=== PATIENT | male | born 1955 | race Caucasian/White ===

== ENCOUNTER 2019-12-23 21:48 | Emergency (ER) | payer OTHER, SELFPAY ==
[2019-12-23 21:54] VITALS: BP 117/84; PULSE 98; RESP 18; TEMP 36.2; O2SAT 99
--- NOTE | 2019-12-23 22:10 | ED.GENADULT ---
HPI - General Adult General Chief complaint: Urogenital-Male Stated complaint: I need a catheter; prostate issue Time Seen by Provider: 12/23/19 22:00 Source: RN notes reviewed History of Present Illness HPI narrative: Patient presents emergency department from home for urinary retention. Patient states he is less able to urinate at approximately 1530 today. States he has a history of enlarged prostate and is followed by Dr. Marion at [facility] for urology. States that he last had a have a Wilder placed in 2018. He denies any fevers or chills chest pain or shortness of breath. Does note lower abdominal pain that feels like a pressure. He states he did have dental work earlier today and had injections of anesthesia Related Data Allergies Allergy/AdvReac Type Severity Reaction Status Date / Time erythromycin base Allergy Mild Unknown Verified 12/23/19 22:04 Sulfa (Sulfonamide Allergy Mild Unknown Verified 12/23/19 22:04 Antibiotics) Review of Systems Review of Systems: Narrative: Gen.: Denies fevers or chills Respiratory: Denies shortness of breath or cough CV: Denies chest pain or palpitations GI: Reports lower abdominal pain nausea, emesis or diarrhea see HPI Musculoskeletal: Denies back pain or muscle pain Neuro: Denies numbness, tingling, weakness or focal weakness Skin: Denies rash Except as documented, all other systems reviewed and negative [facility] Past Medical History Medical History (Updated 12/23/19 @ 22:23 by Tee Sinclair DO) BPH (benign prostatic hyperplasia) Social History Social History (Updated 12/23/19 @ 22:11 by Tee Sinclari DO) Smoking status: Never smoker Gender identity (if verbalized by the patient): Male Exam Narrative: Exam Narrative: APPEARANCE: No acute distress, nontoxic, resting in bed EYES: EOMI HEENT: Normocephalic, atraumatic, OMM RESPIRATORY: No respiratory distress Clear to auscultation bilaterally with no rhonchi wheezing or rales. CARDIOVASCULAR: Regular rate and rhythm without murmurs rubs or gallops. ABDOMINAL: Soft, lower abdominal distention with tenderness palpation suprapubic region, no rebound or guarding MUSCULOSKELETAl: Moves all extremities. NEURO: Awake and alert. Following commands, speech normal, no focal deficits SKIN:: Warm, dry. No rashes lesions or abrasions PSYCHIATRIC: Normal affect/mood, Course Course Emergency Course: Wilder catheter placed by nursing staff with approximately 800 mL of urine out Discussed with patient results of workup and diagnosis. Discussed need for follow-up with primary care, proper use of medication, and reasons to return to the emergency department. Patient understands and agrees to current treatment plan patient will follow-up with his urologist at [facility] Vital Signs Vital signs: Vital Signs Temperature 97.1 F L 12/23/19 21:54 Pulse Rate 98 12/23/19 21:54 Respiratory Rate 18 12/23/19 21:54 Blood Pressure 117/84 12/23/19 21:54 Pulse Oximetry 99 12/23/19 21:54 Temperature 97.1 F L 12/23/19 21:54 Pulse Rate 98 12/23/19 21:54 Respiratory Rate 18 12/23/19 21:54 Blood Pressure 117/84 12/23/19 21:54 Pulse Oximetry 99 12/23/19 21:54 Medical Decision Making Vital Signs Vital Signs: Vital Signs Temperature 97.1 F L 12/23/19 21:54 Pulse Rate 98 12/23/19 21:54 Respiratory Rate 18 12/23/19 21:54 Blood Pressure 117/84 12/23/19 21:54 Pulse Oximetry 99 12/23/19 21:54 Temperature 97.1 F L 12/23/19 21:54 Pulse Rate 98 12/23/19 21:54 Respiratory Rate 18 12/23/19 21:54 Blood Pressure 117/84 12/23/19 21:54 Pulse Oximetry 99 12/23/19 21:54 Lab Data Labs: Lab Results 12/23/19 Range/Units 22:07 Urine Color Yellow (Yellow) Urine Appearance Clear (Clear) Urine pH 6.0 (5.0-9.0) Ur Specific [place] 1.014 (1.001-1.035) Urine Protein Negative (Negative) mg/dL Urine Glucose (UA) Ne
[2019-12-23 22:16] LABS: Add Urine Microscopic? YES; Appearance Urine Clear (Clear); Bilirubin Urine Negative (Negative); Blood Urine Negative (Negative); Color Urine Yellow (Yellow); Glucose Urine UA Negative (Negative); Ketones Urine Negative (Negative); Leukocyte Esterase Ur Negative LEU/UL (Negative); Mucus Urine Rare /lpf; Nitrate Urine Negative (Negative); Protein Urine Negative (Negative); RBC Urine 0-2 /hpf (0-2); Specific Grav Ur 1.014 (1.001-1.035); Urobilinogen Urine Negative mg/dL (<2.0); WBC Urine 0-3 /hpf
[2019-12-23 22:35] VITALS: BP 118/80; PULSE 81; RESP 16; O2SAT 99
[2019-12-23] MEDS: TAMSULOSIN HCL 0.4 MG CAPSULE PO (22:36)
== END 2019-12-23 22:40 | disposition home or self-care (01) ==
PROVIDERS: Emergency Provider Emergency Medicine
DX: R33.8 Other retention of urine (principal)
CPT/HCPCS: 51702; 81001; 99283; A9270

== ENCOUNTER 2021-10-09 18:20 | Emergency (ER) | payer MEDICARE, OTHER, SELFPAY ==
--- NOTE | ~2021-10-09 | XR_ITS ---
XR finger 2nd LT min 2V 10/09/2021 18:53 Indication: Left second finger pain after trauma Procedure: 4 views left second finger Comparison: No prior studies for comparison. Findings: There is a nondisplaced tuft fracture of the left second distal phalanx. No significant sof t tissue abnormality. No foreign bodies. Impression: 1: Nondisplaced tuft fracture left second distal phalanx. Reviewed, dictated and finalized at location A. Impression: 1: Nondisplaced tuft fracture left second distal phalanx.
[2021-10-09 18:33] VITALS: BP 147/91; PULSE 81; RESP 18; TEMP 36.8; O2SAT 99
--- NOTE | 2021-10-09 18:54 | ED.UPPEXIN ---
HPI - Extremity Injury (Upper) General Chief Complaint: Extremity Injury, Upper Stated Complaint: Lt Hand Pain Time Seen by Provider: 10/09/21 18:50 Source: patient, RN notes reviewed and old records reviewed Mode of arrival: ambulatory Limitations: no limitations History of Present Illness HPI narrative: 66 year old male presents to [facility] with complaints of hitting his proximal left index finger with a hammer around noon today. Swelling and ecchymosis noted to his left proximal index finger. 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 No injury noted to the base of the nail or discoloration or the nail. Patient reports that his tetanus shot is up to date from 2 weeks ago. MD complaint: injury to: left and finger (index finger) Related Data Allergies Allergy/AdvReac Type Severity Reaction Status Date / Time erythromycin base Allergy Mild Hives Verified 10/09/21 18:43 Sulfa (Sulfonamide Allergy Mild Unknown Verified 10/09/21 18:43 Antibiotics) Review of Systems Review of Systems: CONSTITUTIONAL: Denies fever, chills, or sweats. EYES: Denies visual changes, redness, or discharge. ENT: Denies rhinorrhea, congestion, sore throat, or otalgia. CARDIOVASCULAR: Denies chest pain, palpitations, or edema. RESPIRATORY: Denies cough or dyspnea. GASTROINTESTINAL: Denies abdominal pain, nausea, vomiting, or diarrhea. GENITOURINARY: Denies dysuria or hematuria. SKIN: Denies rash or itching. MUSCULOSKELETAL: Denies back pain,Positive for pain to 2nd digit left hand proximal and distal aspects. or myalgia. NEUROLOGIC: Denies headache, numbness, or weakness. PSYCHIATRIC: Denies anxiety or depression. All systems reviewed & are unremarkable except as noted in HPI and below PMFSH Past Medical History Medical History (Updated 10/10/21 @ 07:24 by Vivian Vargas NP) BPH (benign prostatic hyperplasia) Hiatal hernia Social History Social History Smoking status: Never smoker Gender identity (if verbalized by the patient): Male Comments At time of signature, agree with nursing past medical, surgical, social and family history. There is no relevant family history pertinent to the presenting complaint Exam Narrative: GENERAL: Well-appearing, well-nourished, and in no acute distress. HEAD: Normocephalic, atraumatic EYES: PERRLA and EOMI. ENT: Nares clear, no rhinorrhea or epistaxis. Mucous membranes moist.TM's normal with good light reflex, throat pink with no lesions or tonsil swelling NECK: Supple. no lymphadenopathy CHEST: Clear to auscultation. No respiratory distress.SAO2 99% on room air HEART: Regular rate and rhythm. No murmur heard. Normal peripheral pulses. ABDOMEN: Soft, nontender, nondistended, normal Exception noted to swelling and bruising to the proximal aspect of 2nd left digit and also pain to distal tip of left index finger with some bleeding noted around side and under nail with no injury noted to base of nail. Some ecchymosis noted to the tip of his left index finger. Patient has mobility of his left index finger with sensation and circulation intact. SKIN: Warm, dry, no rash NEURO: No focal deficits. Alert and oriented x3. Course Course Level of Care: Express Care Visit Vital Signs Vital signs: Vital Signs Temperature 36.8 C 10/09/21 18:33 Pulse Rate 81 10/09/21 18:33 Respiratory Rate 18 10/09/21 18:33 Blood Pressure 147/91 H 10/09/21 18:33 Pulse Oximetry 99 10/09/21 18:33 Oxygen Delivery Room Air 10/09/21 18:33 Temperature 36.8 C 10/09/21 18:33 Pulse Rate 81 10/09/21 18:33 Respiratory Rate 18 10/09/21 18:33 Blood Pressure 147/91 H 10/09/21 18:33 Pulse Oximetry 99 10/09/21 18:33 Oxygen Delivery Room Air 10/09/21 18:33 MDM - Extremity Injury (Upper)
== END 2021-10-09 19:31 | disposition home or self-care (01) ==
PROVIDERS: Emergency Provider Registered Nurse
DX: S62.661A Nondisplaced fracture of distal phalanx of left index finger, initial encounter for closed fracture (principal); S60.022A Contusion of left index finger without damage to nail, initial encounter; W29.8XXA Contact with other powered hand tools and household machinery, initial encounter; N40.0 Benign prostatic hyperplasia without lower urinary tract symptoms
CPT/HCPCS: 29130; 73140; 99214; G0463

== ENCOUNTER 2024-12-04 14:01 | Emergency (ER) | payer MEDICARE, OTHER, SELFPAY ==
--- OUTSIDE RECORDS SUMMARY | 2007-05-29 04:50 | XMS_ITS | Continuity of Care Document ---
Author Organization [facility] Address [address] [place] [address] Phone Care Team Providers Care Coordinating Producer Name Role Phone Katyh Costa Unavailable Unavailable Procedures Procedure Date Remove Foreign Body From Eye Remove Foreign Body From Eye Advance Directives Directive Yes / No Effective Date File Name No Information Encounters Encounter Description Practice Location Reason(s) For Visit Diagnoses Date Provider Providers Copied on Encounter [facility], [address], [place], [place], [id number], tel:[phone] [facility] No Information 8 Julissa Chavez. [address] , [address], [place], [address], . tel:[phone] Referring Provider: Kathy Wolff, [facility] [address], [place], [place], [facility]. tel:[phone] [facility], [address], [place], [place], [id number], [place] tel:[phone] [facility] No Information 8 Julissa Chavez. [address] [facility] , [address], [place], [address], [place]. tel:[phone] Family History Family Member Type Diagnosis Age At Onset No Information Payers Payer name Insurance type Covered green party ID Authoriza tion(s) No Information Social History Type Description Quantity Date Captured Comments Sex Male Smoking Status No Information Chief Complaint And Reason For Visit No Information Reason For Referral Reason For Referral No Information History Of Present Illness Encounter Date Complaint History Of Prese nt Illness No Information Functional Status Date Functional Assessmen t No Information Instructions Date Instruction Additional Infor mation No Information Assessments Type Assessment Date No Information Patient Care Teams Name Effective Dates (start - stop) Status Members No Information
--- OUTSIDE RECORDS SUMMARY | 2007-05-29 04:50 | XMS_ITS | Continuity of Care Document ---
Author Organization [facility] Address [address] [place] [address] Phone Care Team Providers Care Validation Consultant Name Role Phone Kathy Costa Unavailable Unavailable Procedures Procedure Date Remove Foreign Body From Eye Remove Foreign Body From Eye Advance Directives Directive Yes / No Effective Date File Name No Information Encounters Encounter Description Practice Location Reason(s) For Visit Diagnoses Date Provider Providers Copied on Encounter [facility], [address], [place], [place], [id number], tel:[phone] [facility] No Information 8 Julissa Chavez. [address] [address] , [address], [place], [address], . tel:[phone] Referring Provider: Kathy Wolff, [facility] [address], [place], [place], [facility]. tel:[phone] [facility], [address], [place], [place], [id number], [place] tel:[phone] [facility] No Information 8 Julissa Chavez. [address] [facility] [address] , [address], [place], [address], [place]. tel:[phone] Family History Family Member Type Diagnosis Age [...]
--- NOTE | 2024-12-04 14:04 | ED_ITS ---
HPI - Extremity Injury (Lower) General Chief Complaint: Skin/Abscess/Foreign Body Stated Complaint: Rt Foot Pain Time Seen by Provider: 12/04/24 14:04 Source: patient Mode of arrival: ambulatory Limitations: no limitations History of Present Illness HPI Narrative: David is a 61-year-old male patient presenting to the clinic today with complaints of a puncture wound to his right midfoot that occurred approximately 5 days ago. He reports he stepped on a big foreign that went through his shoe into his foot. Has a small puncture wound to the midfoot without redness or swelling. Patient reports the area is mildly tender. Is concerned about tetanus and would like a tdap injection today Related Data Home Medications ?Medication ?Instructions ?Recorded ?Confirmed ?Last Taken ?Type fluorometholone 0.1 % eye drp 12/04/24 Unknown Histor y drops,suspension Allergies Allergy/AdvReac Type Severity Reaction Status Date / Time erythromycin base Allergy Mild Hives Verified 12/04/24 14:08 Sulfa (Sulfonamide Allergy Mild Hives Verified 12/04/24 14:08 Antibiotics) Review of Systems Review of Systems: Pertinent positives per HPI. Patient denies any fever, chills, rash, headache, visual changes, dizziness, cough, runny nose, sore throat, shortness of breath, chest pain, palpitations, nausea, vomiting, diarrhea, constipation, abdominal pain, or any urinary issues. [facility] Past Medical History Medical History Right wrist tendinitis UTI (urinary tract infection), bacterial Hiatal hernia BPH (benign prostatic hyperplasia) Surgical History Surgical History S/P tendon repair bicep repair [address] Matson. 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 There is no relevant family history pertinent to the patient complaint. Exam Narrative: General: Well-developed, well nourished, in no apparent distress Head: Normocephalic, atraumatic. Cardio: Regular rate and rhythm, s1 and s2 normal, no murmur appreciated. Resp: Clear to auscultation bilaterally, no rhonchi, rales, wheezing or rubs. Integumentary: [place], warm, and dry, small puncture wound to the right midfoot with mild tenderness to palpation without induration or palpable abscess, no obvious retained foreign body Course Course Emergency Course: Portions of this record may have been created with voice recognition software. Level of Care: Express Care Visit Vital Signs Vital signs: Vital Signs Temperature 36.4 C 12/04/24 14:14 Pulse Rate 96 12/04/24 14:14 Respiratory Rate 18 12/04/24 14:14 Blood Pressure 134/81 12/04/24 14:14 Pulse Oximetry 100 12/04/24 14:14 Oxygen Delivery Room Air 12/04/24 14:14 Temperature 36.4 C 12/04/24 14:14 Pulse Rate 96 12/04/24 14:14 Respiratory Rate 18 12/04/24 14:14 Blood Pressure 134/81 12/04/24 14:14 Pulse Oximetry 100 12/04/24 14:14 Oxygen Delivery Room Air 12/04/24 14:14 Vital signs reviewed MDM - Extremity Injury (Lower) MDM Narrative Medical decision making narrative: At the time of visit patient is resting comfortably on the exam table. Patient appears to be nontoxic. Complaints of a puncture wound to his right midfoot that occurred approximately 5 days ago. He reports he stepped on a big foreign that went through his shoe into his foot. Has a small puncture wound to the midfoot without redness or swelling. Patient reports the area is mildly tender. Is concerned about tetanus and would like a tdap injection today. On exam patient has small puncture wound to the right midfoot with mild tenderness to palpation without induration or palpable abscess, no obvious retained foreign body. Tdap was ordered. Medications: Tdap 0.5 mL IM given in the clinic Plan: Patient has puncture wound to the right foot. Tetanus shot updated in the clinic. Supportive measures were discussed with the patient and they voiced understanding discharge instructions and agrees to treatment plan. Return precautions reviewed Differential Diagnosis Differential diagnosis: Likely puncture wound of foot and other (Skin infection, cellulitis, retained foreign body) Discharge Plan Discharge Clinical Impression: Encounter for immunization Puncture wound of foot Qualifiers: Encounter type: initial encounter Laterality: right Qualified Code(s): S91.331A - Puncture wound without foreign body, right foot, initial encounter Patient Disposition: Home Condition: Stable Instructions: Antibiotic Form, Puncture Wound in the Foot (ED) Additional Instructions: Tdap 0.5 mL IM given in the clinic today Keep wound clean and dry May take Tylenol/Motrin as needed for pain Watch for signs and symptoms of infection- redness, streaking, swelling, purulent discharge, or increase in pain. Follow up with your PCP in 2-3 days as needed Patient Language: [place] Prescriptions: No Action fluorometholone 0.1 % drops,suspension Follow-up/Referrals: UNKNOWN,DOCTOR [Non-Staff] Time of Disposition: 14:20 Quality NIHSS Nursing Documentation ED NIHSS nursing documentation: reviewed/agree
--- OUTSIDE RECORDS SUMMARY | 2024-12-04 14:05 | XMS_ITS | Clinical Summary ---
Author Organization [facility] [employer] Address [address] [place] [address] Care Team Providers Care Logistics Vice President Name Role Phone Tigre Astorga DO Primary Care Provider [phone] Regina Magaña DO Unavailable [phone] Source Comments [facility] [employer],non-owned Affiliates and Associated Physician Practices is amultiple site organization consisting of ambulatory clinics and hospital sitesin [place], [place], [place] and [place]. This disclosure is being madepursuant to the Care Everywhere program and may not contain all information available regarding this patient. Last updated 18.[facility] [employer] Allergies Active Allergy Reactions Criticality Noted Date Comments Erythromycin Urticaria Medium 12/01/2015 Sulfa Drugs Itching High 01/01/2018 Medications * Be aware that medications may not be up to date on this document. Alwaysverify current medications with the patient. [place]-3 Fatty Acids (FISH OIL) 1000 MG capsule Take 2 (two) capsules by mouth Active B Complex Vitamins (B COMPLEX 50 PO) Activ e Green Tea, Joanna sinensis, (GREEN TEA EXTRACT PO) Active DIGESTIVE ENZYMES PO Active Specialty Vitamins Products (PROSTATE PO) Active Turmeric (QC TUMERIC COMPLEX PO) Active Gatito, Zingiber officinalis, (GATITO ROOT PO) Active vitamin E (Tocopheryl) 100 UNIT capsule Take by mouth once daily Active niacinamide 500 MG tablet Take 4 (four) tablets by mouth once daily Active calcium carbonate (Tums) 500 MG chew tablet Take 1 (one) tablet by mouth daily with food Active dexAMETHasone (Decadron) 1 MG tabletIndicatio ns:Adenoma of left adrenal gland Take 1 (one) tablet by mouth once daily 1 tablet 01/05/2024 Active acetylcysteine (N-Acetyl Cysteine) 600 MG capsule Take 1 (one) capsule by mouth 2 times daily Active Ginseng 100 MG Take 100 mg by mouth once daily Active Active Problems Problem Noted Date Diagnosed Date Adrenal nodule 01/26/2024 Dyslipidemia 01/26/2024 Assessment & Plan (01/26/2024 2:18 PM CDT): - ASCVD risk 21.5% Plan: - after discussing risk and benefits, pt declined statin or other pharmacotherapy - repeat lipid panel in 6 mo HTN (hypertension) 01/26/2024 Assessment & Plan (01/26/2024 2:21 PM CDT): - per chart review, pt's has been having elevated pressures for past several years. Pt states it has been improving w/ supplements - unclear if essential vs secondary htn 2/2 to functioning adrenal adenoma Plan: - after discussing risks and benefits, pt declined pharmacotherapy at this time - pt agreed to OnetoOnetext BP log - ctm Routine health maintenance 01/26/2024 Assessment & Plan (01/26/2024 2:33 PM CDT): - pt declined any vaccines at this time - pt is due for colonoscopy between and 2025, and an EGD by 2025 Plan: - plan for scheduling w/ GI at next f/u Elevated urinary free cortisol level 01/26/2024 Assessment & Plan (01/26/2024 2:31 PM CDT): - is following w/ endo. Plan is to repeat labs after patient had been taking new set of supplements for several months. Pt is planning on completing his 2nd dexamethasone test tonight/tmr AM. Plan: - f/u endo's recommendations and test results Elevated PSA 01/17/2021 Tubular adenoma of colon 01/17/2021 Benign localized hyperplasia of prostate with urinary obstruction 12/01/2015 Assessment & Plan (01/26/2024 2:19 PM CDT): - following urology Plan: - ctm GERD (gastroesophageal reflux disease) Resolved Problems Problem Noted Date Diagnosed Date Resolved Date Preventative health care 01/17/2021 Palpitations 01/17/2021 01/26/2024 Assessment & Plan (02/12/2021 5:13 PM CDT): The appear temporarily related to taking the Setswana tea, epilobium (as a prostate supplement) and has resolved . Given the unknown acctive ingredients in this product their could haave been a caffein-like stimulate that created his palpitations. As they have resolved with stopping the supplement no further workup is indicated. patient reassured and encouraged to avoid taking supplements for his medical problems Encounters Date Type Department Care Team Description 09/10/2024 11:02 AM CDT - 09/10/2024 12:24 PM CDT Emergency [facility] [address] [place] [id number] Fall, initial encounter; Sciatica of left side; Acute pain of left knee Discharge Disposition: Left Against Medical Advice/Discontinued Care 09/10/2024 Travel from Last 3 Months Immunizations Immunization Administration Dates Next Due INFLUENZA VACCINE, TRIV. (AF LURIA, FLUZONE TRIVALENT; 6MO+) (IIV3) 04/04/2015 TD (AGE 7-ADULT) 12/06/2004 TDAP (7yrs+) 04/05/2015 Family History Medical History Relation Name Comments CAD (Coronary Artery Disease) Father heavy smoker Cancer - Bladder Father Hypertension Father CAD (Coronary Artery Disease) Paternal Grandfather Hypertension Paternal Grandfather Relation Name Status Comments Father Paternal Grandfather Social History Tobacco Use Types Packs/Day Years Used Date Smoking Tobacco: Never Smokeless Tobacco: Never Alcohol Use Standard Drinks/Week Comments Not Currently 0 (1 standard drink = 0.6 oz pur e alcohol) rarely/monthly AUDIT-C Answer Date Recorded Q1: How often do you have a drink containing alc ohol? Monthly or less 06/03/2023 Q2: How many drinks containi ng alcohol do you have on a typical day when you are drinking? 1 or 2 06/03/2023 Q3: How often do you have si x or more drinks on one occasion? Never 06/03/2023 PHQ-2 Answer Date Recorded Patient Health Questionnaire-2 Score 0 01/26/2024 Sex and Gender Information Value Date Recorded Sex Assigned at Not on file Legal Sex Male 8:06 AM CDT Gender Identity Not on file Sexual Orientation Not on file Last Filed Vital Signs Vital Sign Reading Time Taken Comments Blood Pressure 150/75 09/10/2024 8:01 AM CDT Pulse 84 09/10/2024 8:01 AM CDT Temperature 36.5 C (97.7 F) 09/10/2024 8:01 AM CDT Respiratory Rate 18 09/10/2024 8:01 AM CDT Oxygen Saturation 98% 09/10/2024 8:01 AM CDT Inhaled Oxygen Concentration - - Weight 77.1 kg (170 lb) 09/10/2024 8:01 AM CDT Height 167.6 cm (5' 6) 09/10/2024 8:01 AM CDT Body Mass Index 27.44 09/10/2024 8:01 AM CDT Plan of Treatment Health Maintenance Due Date Last Done Comments COLOGUARD (AGES 45-75) - COLON CA SCREENING 1955 CT COLONOGRAPHY - COLON CA SCREENING 1955 FIT - COLON CA SCREENING 1955 FLEX SIG - COLON CA SCREENING 1955 PNEUMOCOCCAL VACCINE 50+ (1 of 1 - PCV) 2006 ZOSTER VACCINE (1 of 2) 2006 Respiratory Syncytial Virus (RSV) Vaccine Pt: or over 60 yrs (1 - Risk 60-74 years 1-dose series) 2016 MEDICARE AWV 12 MONTHS 06/18/2022 06/18/2021 COVID-19 VACCINE (1 - season) 2023 DEPRESSION SCREENING 04/14/2024 01/26/2024, 12/12/19 22 INFLUENZA VACCINE (#1) 2024 04/04/2015 DTAP/TDAP/TD VACCINES (3 - Td or Tdap) 04/05/2025 04/05/2015, 12/06/2004 SCREENING FOR DIABETES 10/20/2026 , 04/20/2023, 05/17/2022, Additional history exists LIPID TESTING 08/24/2028 08/25/2023 COLON MONITORING 10/19/2030 10/19/2020, 10/19/2020 COLONOSCOPY - COLON CA SCREENING 10/19/2030 10/19/2020, 10/19/2020 Colorectal Cancer Screening 10/19/2030 HEPATITIS C SCREENING Completed 08/25/2023 HEPATITIS B VACCINE Aged Out No longe r eligible based on patient's age to complete this topic HIB VACCINE Aged Out No longer eligi ble based on patient's age to complete this topic HPV VACCINE Aged Out No longer eligi ble based on patient's age to complete this topic MENINGOCOCCAL (Group B) VACCINE SHARED DECISION-MAKING Aged Out No longer eligible based on patient's age to complete this topic MENINGOCOCCAL GROUPS A/C/Y/W VACCINE Aged Out No longer eligible based on patient's age to complete this topic Goals Goal Patient Goal Type Associated Problems Recent Progress Patient-Stated? Author Medication Management General On track( 024 1:59 PM CDT) Hue Briones RN Note: Expected end date: ongoing Interventions: Take all medications as prescribed Let your doctor know right away about any changes in your medications Make sure to request a refill of your medication at least one week prior to your last dose Medical Devices Implanted Type Area Tandem Operator Device Identifier Shelf Expiration Date Model / Serial / Lot Mesh Srg Bard 3dmax 6x4in Lg 3d Crv Implanted:Qty: 1 on 04/02/2022 by Heike Lam MD at [facility] N/A: Ingu[employer] 04/10/2026 [id number] / / [id number] Procedures Procedure Name Priority Date/Time Associated Diagnosis Comments XR LUMBAR SPINE 2 OR 3VW STAT 09/10/2024 11:43 AM CDT Fall, initial encounter XR KNEE LEFT 3VW STAT 09/10/2024 9:38 AM CDT Fall, initial encounter XR PELVIS W BILAT HIP 2VW STAT 09/10/2024 9:37 AM CDT Fall, initial encounter BASIC METABOLIC PANEL (CALCIUM TOTAL) Routine 10/21/2023 8:34 AM CDT Adenoma of left adrenal gland LIPID PROFILE Routine 08/25/2023 3:17 PM CDT Routine health maintenance HEPATITIS C AB SCREEN RFLX NAAT QUANT Routine 08/25/2023 3:17 PM CDT Routine health maintenance ENDOSCOPY, COLON, SCREENING Routine 10/19/2020 1:59 PM CDT from Last 3 Months or Most Recently Relevant to Health Maintenance Results * XR Lumbar Spine 2 or 3Vw (09/10/2024 11:43 AM CDT) Anatomical Region Laterality Modality Spine Digital Radiogra phy 09/10/2024 11:5 1 AM CDT Impressions 09/10/2024 12:43 PM CDT IMPRESSION: Dextroscoliosis. 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 Moderate diffuse degenerative disc and joint disease. Report dictated by Arvin Trujillo MD (radiology manager). I, Clarisa Chandler MD have personally reviewed and interpreted this examination/study. > Interpreting Provider: Clarisa Chandler MD on 09/10/2024 12:43 PM Narrative 09/10/2024 12:43 PM CDT PROCEDURE: XR LUMBAR SPINE 2 OR 3VW, DATE/TIME OF EXAM: 09/10/2024 11:43 AM, LOCATION [facility] INDICATION: [id number].XXXA: Fall, initial encounter ADDITIONAL CLINICAL INFORMATION: Ordering Provider Reason For Exam: r/o fx COMPARISON: CT abdomen pelvis 04/20/2023 FINDINGS: There is dextrocurvature of the lumbar spine. There are bilateral pars defects at L5 with grade 1 anterolisthesis of L5 on S1, similar to prior CT scan from 04/20/2023. There is no acute fracture or compression deformity. Multilevel moderate degenerative disc disease throughout the lumbar spine with loss of the disc space and osteophyte formation. There is moderate facet arthropathy in the lower lumbar spine. Procedure Note Clarisa Chandler MD - 09/10/2024 PROCEDURE: XR LUMBAR SPINE 2 OR 3VW, DATE/TIME OF EXAM: 511:43 AM, LOCATION [facility] INDICATION: [id number].XXXA: Fall, initial encounter ADDITIONAL CLINICAL INFORMATION: Ordering Provider Reason For Exam: r/o fx COMPARISON: CT abdomen pelvis 04/20/2023 FINDINGS: There is dextrocurvature of the lumbar spine. There are bilateral pars defects at L5 with grade 1 anterolisthesis of L5 on S1, similar to priorCT scan from 04/20/2023. There is no acute fracture or compression deformity. Multilevel moderate degenerative disc disease throughout the lumbarspine with loss of the disc space and osteophyte formation. There is moderate facet arthropathy in the lower lumbar spine. IMPRESSION: Dextroscoliosis. 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 Moderate diffuse degenerative disc and joint disease. Report dictated by Arvin Trujillo MD (radiology manager). IClarisa MD have personally reviewed and interpreted this examination/study. > Interpreting Provider: Clarisa Chandler MD on 09/10/2024 12:43 PM Jaqueline Orourke PA-C DIAGNOSTIC IMAGING ORDERABLES F inal Result * XR Knee Left 3Vw (09/10/2024 9:38 AM CDT) Anatomical Region Laterality Modality Lower Extremity Digital Radiogra phy 09/10/2024 9:46 AM CDT Impressions 09/10/2024 9:50 AM CDT IMPRESSION: 1.No acute fracture or dislocation identified. 2.Tricompartmental osteoarthritis of the knee. Report dictated by Arvin Trujillo MD (radiology manager). Alex Moore MD have personally reviewed and interpreted this examination/study. > Interpreting Provider: Alex Adame MD on 09/10/2024 9:50 AM Narrative 09/10/2024 9:50 AM CDT PROCEDURE: XR KNEE LEFT 3VW, DATE/TIME OF EXAM: 09/10/2024 9:38 AM, LOCATION [facility] INDICATION: [id number].XXXA: Fall, initial encounter ADDITIONAL CLINICAL INFORMATION: Ordering Provider Reason For Exam: ro fx vs other COMPARISON: None. FINDINGS: The osseous structures are intact and well aligned without acute fracture or dislocation. Moderate tricompartmental osteoarthritis of the knee, most severe at the patellofemoral joint with more advanced changes. No joint effusion is seen. Procedure Note Alex Adame MD - 09/10/2024 PROCEDURE: XR KNEE LEFT 3VW, DATE/TIME OF EXAM: 09/10/2024 9:38 AM, LOCATION [facility] INDICATION: [id number].XXXA: Fall, initial encounter ADDITIONAL CLINICAL INFORMATION: Ordering Provider Reason For Exam: ro fx vs other COMPARISON: None. FINDINGS: The osseous structures are intact and well aligned without acutefracture or dislocation. Moderate tricompartmental osteoarthritis of the knee,most severe at the patellofemoral joint with more advanced changes. No joint effusion is seen. IMPRESSION: 1.No acute fracture or dislocation identified. 2.Tricompartmental osteoarthritis of the knee. Report dictated by Arvin Trujillo MD (radiology manager). Alex Moore MD have personally reviewed and interpreted this examination/study. > Interpreting Provider: Alex Adame MD on 09/10/2024 9:50 AM us Yakelin Graf PA-C DIAGNOSTIC IMAGING ORDERABL ES Final Result * XR Pelvis W Bilat Hip 2Vw (09/10/2024 9:37 AM CDT) Anatomical Region Laterality Modality Pelvis, Lower Extremity Digital Radiography 09/10/2024 9:41 AM CDT Impressions 09/10/2024 9:52 AM CDT IMPRESSION: No acute fracture identified. Report dictated by Arvin Trujillo MD (radiology manager). Alex Moore MD have personally reviewed and interpreted this examination/study. > Interpreting Provider: Alex Adame MD on 09/10/2024 9:52 AM Narrative 09/10/2024 9:52 AM CDT PROCEDURE: XR PELVIS W BILAT HIP 2VW, DATE/TIME OF EXAM: 09/10/2024 9:38 AM, LOCATION [facility] INDICATION: [id number].XXXA: Fall, initial encounter ADDITIONAL CLINICAL INFORMATION: Ordering Provider Reason For Exam: ro fx vs other COMPARISON: None. FINDINGS: Post surgical tacks superimposing the right hemipelvis/sacrum likely related to prior hernia repair. No acute fracture is identified. The femoral heads appear well-seated within their respective acetabula. Mild bilateral hip osteoarthritis. The pubic symphysis is intact. The sacroiliac joints are normal. Degenerative changes in the lumbosacral junction. Procedure Note Alex Adame MD - 09/10/2024 PROCEDURE: XR PELVIS W BILAT HIP 2VW, DATE/TIME OF EXAM: 59:38 AM, LOCATION [facility] INDICATION: [id number].XXXA: Fall, initial encounter ADDITIONAL CLINICAL INFORMATION: Ordering Provider Reason For Exam: ro fx vs other COMPARISON: None. FINDINGS: Post surgical tacks superimposing the right hemipelvis/sacrum likely related to prior hernia repair. No acute fracture is identified. The femoral heads appear well-seated within their respective acetabula. Mild bilateral hip osteoarthritis.The pubic symphysis is intact. The sacroiliac joints are normal.Degenerative changes in the lumbosacral junction. IMPRESSION: No acute fracture identified. Report dictated by Arvin Trujillo MD (radiology manager). I, Alex Adame MD have personally reviewed and interpreted this examination/study. > Interpreting Provider: Alex Adame MD on 09/10/2024 9:52 AM Yakelin Graf PA-C DIAGNOSTIC IMAGING ORDERABL ES Final Result * (ABNORMAL) BASIC METABOLIC PANEL (CALCIUM TOTAL) (10/21/2023 8:34 AM CDT) BUN 16 7 - 26 mg/dL 10/21/2023 9:[address] [facility] Creatinine 1.01 0.71 - 1.16 mg/dL 10/21/2023 9:[address] [facility] Sodium 140 136 - 145 mmol/L 10/21/2023 9:[address] [facility] Potassium 4.1 3.5 - 4.5 mmol/L 10/21/2023 9:[address] [facility] Chloride 108(H) 98 - 107 mmol/L 10/21/2023 9:19 AM [facility] CO2 24 22 - 29 mmol/L 10/21/2023 9:19 AM [facility] Glucose 105 70 - 115 mg/dL 10/21/2023 9:19 AM [facility] Calcium 9.5 8.4 - 10.2 mg/dL 10/21/2023 9:19 AM [facility] Anion Gap 8 6 - 16 10/21/2023 9:19 AM [facility] BUN/Creatinine Ratio 16 7 - 23 10/21/2023 9:19 AM [facility] Osmolality Calculated 292 275 - 295 mOsm/kg 10/21/2023 9:19 AM [facility] eGFR by CKD-EPI 82(L) >=90 mL/min/1.7 3 m2 10/21/2023 9:19 AM [facility] Blood BLOOD SPECIMEN / Unknown Lab Venipuncture / Unknown 10/21/2023 8:34 AM CDT 10/21/2023 8:48 AM CDT Justin Velez MD LAB - CHEMISTRY ORDERABLES Fin al Result [facility] [address] [place] [phone], [facility] [phone] * HEPATITIS C AB SCREEN RFLX NAAT QUANT (08/25/2023 3:17 PM CDT) Hepatitis C Antibody Non-react samy Non-reac tive 08/25/2023 4:17 PM [facility] Comment:Hepatitis C Antibody screen indicates no serologic evidence of past or current infection with Hepatitis C Virus. Patients with unexplained liver disease who are immunocompromised or suspected of having acute Hepatitis C infection may benefit from Nucleic Acid Test (SAHRA) for Hepatitis C Viral RNA to confirm Hepatitis C status. Blood BLOOD SPECIMEN / Unknown Lab Venipuncture / Unknown 08/25/2023 3:17 PM CDT 08/25/2023 3:25 PM CDT Flo Brown MD LAB - CHEMISTRY ORDERABLES Final Result Performing Organization Address [facility]/ZIP Co de Phone Number [facility] [address] [place] [address], [facility] [phone] * (ABNORMAL) LIPID PROFILE (08/25/2023 3:17 PM CDT) Cholesterol Total 222(H) <200 mg/dL 08/25/2023 3:58 PM CDT [facility] HDL 44 >40 mg/dL 08/25/2023 3:58 PM CDT [facility] Comment: ATP III Classification of HDL Cholesterol: <40 mg/dL: Considered a major risk factor. >60 mg/dL: Considered a negative risk factor. LDL Calculated 158(H) <100 mg/dL 08/25/2023 3:58 PM CDT [facility] Comment: ATP III Classification of LDL Cholesterol: <100 mg/dL: Optimal 100 - 129 mg/dL: Near Optimal/Above Optimal 130 - 159 mg/dL: Borderline High 160 - 189 mg/dL: High >190 mg/dL: Very High Triglycerides 101 <150 mg/dL 08/25/2023 3:58 PM CDT [facility] Comment: ATP III Classification of Triglycerides: <150 mg/dL: Normal 150 - 199 mg/dL: Borderline High 200 - 400 mg/dL: High >500 mg/dL: Very High Blood BLOOD SPECIMEN / Unknown Lab Venipuncture / Unknown 08/25/2023 3:17 PM CDT 08/25/2023 3:28 PM CDT Flo Brown MD LAB - CHEMISTRY ORDERABLES Final Result [facility] [address] [place] [phone], [facility] [phone] * ENDOSCOPY, COLON, SCREENING (10/19/2020 1:59 PM CDT) Report Endoscopy POC Endoscopy Department Report _ Patient Name: David Braun Procedure Date: 10/19/2020 1:59 PM Date of : 1955 Classification: Outpatient Gender: Male Ethnicity: Not or Race: White _ Providers: Martina Carmen MD Referring MD: Sidra Lee (Referring MD) Procedure: Colonoscopy Indications: Screening for colorectal malignant neoplasm, Incidental - Diarrhea post prilosec Medications: Monitored Anesthesia Care Description of Procedure: Pre-Anesthesia Assessment: - Prior to the procedure, a History and Physical was performed, and patient medications and allergies were reviewed. The patient's tolerance of previous anesthesia was also reviewed. The risks and benefits of the procedure and the sedation options and risks were discussed with the patient. All questions were answered, and informed consent was obtained. Prior Anticoagulants: The patient has taken no previous anticoagulant or antiplatelet agents. ASA Grade Assessment: III - A patient with severe systemic disease. After reviewing the risks and benefits, the patient was deemed in satisfactory condition to undergo the procedure. After I obtained informed consent, the scope was passed under direct vision. Throughout the procedure, the patient's blood pressure, pulse, and oxygen saturations were monitored continuously. The [id number] was introduced through the anus and advanced to the terminal ileum, with identification of the appendiceal orifice and IC valve. The colonoscopy was performed without difficulty. The patient tolerated the procedure well. The quality of the bowel preparation was evaluated using the BBPS ([place] Bowel Preparation Scale) with scores of: Right Colon = 3, Transverse Colon = 3 and Left Colon = 3 (entire mucosa seen well with no residual staining, small fragments of stool or opaque liquid). The total BBPS score equals 9. The terminal ileum, ileocecal valve, appendiceal orifice, and rectum were photographed. Scope insertion time was 5 minutes. Findings: The perianal and digital rectal examinations were normal. The terminal ileum appeared normal. A 3 mm polyp was found in the ascending colon. The polyp was sessile. The polyp was removed with a jumbo cold forceps. Resection and retrieval were complete. A 5 mm polyp was found in the ascending colon. The polyp was sessile. The polyp was removed with a cold snare. Resection and retrieval were complete. A 3 mm polyp was found in the descending colon. The polyp was sessile. The polyp was removed with a jumbo cold forceps. Resection and retrieval were complete. The retroflexed view of the distal rectum and anal verge was normal and showed no anal or rectal abnormalities. Biopsies were taken with a cold forceps in the entire colon for histology. Estimated Blood Loss: Estimated blood loss was minimal. Complications: No immediate complications. Impression: - The examined portion of the ileum was normal. - One 3 mm polyp in the ascending colon, removed with a jumbo cold forceps. Resected and retrieved. - One 5 mm polyp in the ascending colon, removed with a cold snare. Resected and retrieved. - One 3 mm polyp in the descending colon, removed with a jumbo cold forceps. Resected and retrieved. - The distal rectum and anal verge are normal on retroflexion view. - Biopsies were taken with a cold forceps for histology in the entire colon. Recommendation: - Patient has a contact number available for emergencies. The signs and symptoms of potential delayed complications were discussed with the patient. Return to normal activities tomorrow. Written discharge instructions were provided to the patient. - Resume previous diet. - Continue present medications. - Await pathology results. - Repeat colonoscopy is recommended for surveillance. The colonoscopy date will be determined after pathology results from today's exam become available for review. Attending Participation: I was present and participated during the entire procedure, including non-taylor portions. Procedure Code(s): --- Professional --- 62989, Colonoscopy, flexible; with removal of tumor(s), polyp(s), or other lesion(s) by snare technique [id number], 59, Colonoscopy, flexible; with biopsy, single or multiple Diagnosis Code(s): --- Professional --- Z12.11, Encounter for screening for malignant neoplasm of colon K63.5, Polyp of colon CPT copyright 2019 [employer]. All rights reserved. The codes documented in this report are preliminary and upon machine guide base winder review may be revised to meet current compliance requirements. ____ Martina Carmen MD 10/19/2020 2:52:32 PM Note Initiated On: 10/19/2020 1:59 PM Number of Addenda: [id number] [place] [address] PROVATION 10/19/2020 1:59 PM CDT Martina Carmen MD GI PROCEDURE ORDERABLES Ed ited Result - Final [facility] PROVATION from Last 3 Months or Most Recently Relevant to Health Maintenance Insurance MEDICARE [facility] [place] [address] MEDICARE [facility] [place] [id number] Care Teams Logistics Vice President Relationship Specialty Start Date End Date Tigre Astorga DO [address] DIV OF INT MED [address] [place] [address] PCP - General Internal Medicine 11/21/23 Regina Magaña DO [address] [place] [address] Physician Internal Medicine 11/21/23
--- OUTSIDE RECORDS SUMMARY | 2024-12-04 14:05 | XMS_ITS | Encounter Summary ---
Author Organization [facility] Address [address] [facility] [place] [address] Care Team Providers Care Company Miner Blasting Name Role Phone Rena Manzo MD Primary Care Provider [phone] Prakash Olivares MD Primary Care Provider [phone] Kelvin Ruano DO Unavailable Rena Manzo MD Primary Care Provider [phone] Kelvin Ruano DO Primary Care Provider [phone] Shravan Rousseau MD Unavailable Tigre Astorga DO Primary Care Provider Regina Magaña DO Unavailable [phone] Encounter Details Date Type Department Care Team (Late st Contact Info) Description 03/14/2021 Telephone [facility] General Internal Medicine [address] [facility], [facility] [place] [address] Kelvin Ruano DO [address] [facility] [place] [address] Social History Tobacco Use Types Packs/Day Years Used Date Smoking Tobacco: Never Smokeless Tobacco: Never Alcohol Use Standard Drinks/Week Comments No 0 (1 standard drink = 0.6 oz pur e alcohol) Sex and Gender Information Value Date Recorded Sex Assigned at Not on file Legal Sex Male 8:06 AM CDT Gender Identity Not on file Sexual Orientation Not on file documented as of this encounter Functional Status * Is person deaf or have serious hearing difficulty? Answer Date of Assessment Author No 01/05/2021 10:45 AM LALAT Leda Richard RN * Is person blind or have serious difficulty seeing? Answer Date of Assessment Author No 01/05/2021 10:45 AM LALAT Leda Richard RN * Does person have serious difficulty walking/climbing stairs? Answer Date of Assessment Author No 01/05/2021 10:45 AM LALAT Leda Richard RN * Does person have difficulty dressing/bathing? Answer Date of Assessment Author No 01/05/2021 10:45 AM Leda Sinha RN * Does person have difficulty doing errands alone? Answer Date of Assessment Author No 01/05/2021 10:45 AM Leda Sinha RN documented as of this encounter Mental Status * Does person have difficulty concentrating/remembering/making decisions? Answer Entry Date Author No 01/05/2021 10:45 AM Leda Sinha RN documented in this encounter Miscellaneous Notes * Telephone Encounter - Kelvin Ruano DO - 03/14/2021 3:10 PM CST Attempted to call pt regarding L knee pain. Pt did not answer. Will call at another time. CE CORRESPONDENT documented in this encounter Plan of Treatment Not on file documented as of this encounter Goals Goal Patient Goal Type Associated Problems [...] one week prior to your last dose documented as of this encounter Visit Diagnoses Not on filedocumented in this encounter Care Teams Company Miner Blasting Relationship Specialty Start Date End Date Rena Manzo MD PCP - General 01/17/21 03/19/21 Prakash Olivares MD [address] DIV [place] [address] PCP - General 03/20/21 06/26/21 Rena Manzo MD PCP - General 06/27/21 08/24/23 Kelvin Ruano DO [address] [place] [address] PCP - General Internal Medicine 08/25/23 11/20/23 Tigre Astorga DO [address] DIV OF [address] [address] PCP - General Internal Medicine 11/21/23 Kelvin Ruano DO [address] [place] [address] Resident - PCP Internal Medicine 06/27/21 11/20/23 Shravan Rousseau MD [address] [place] [address] Internal Medicine 08/25/23 11/20/23 Regina Magaña DO [address] DIV OF [place] [address] Physician Internal Medicine 11/21/23 documented as of this encounter
--- OUTSIDE RECORDS SUMMARY | 2024-12-04 14:05 | XMS_ITS | Patient Health Record ---
Author Organization [facility] Address [address] [place] [address] Care Team Providers Care Pediatrics Teacher Name Role Phone Tom Jacome Unavailable [phone] Reason For Referral No Information Problems Problem Type SNOMED Code ICD Code Onset Dates Problem Status W/U Status Risk Notes Problem Microscopic hematuria (559293221) Microscopic hematuria (599.72) 6 Active confirmed Problem Benign prostatic hypertrophy with outflow obstruction (643825005) Hypertrophy (benign) of prostate with urinary obstruction and other lower urinary tract symptoms [LUTS] (600.01) 6 Active confirmed Problem Chronic prostatitis (32022293) Chronic prostatitis (601.1) 6 Active confirmed Problem Retention of urine (disorder) (196350099) Unspecified retention of urine (788.20) 6 Active confirmed Plan Of Treatment No Information Insurance Providers Payer Name Payer Address Payer Phone Subscriber Number Group Number Insured Name Patient Relationship to Insured Coverage Start Date Coverage End Date [facility] [address] [address] [place], [place] [id number] [phone] NULL David Braun Self - patient is the insured
--- OUTSIDE RECORDS SUMMARY | 2024-12-04 14:05 | XMS_ITS | Clinical Summary ---
Author Organization [facility] Health Address [address] [facility] [place] [address] Care Team Providers Care Lending Manager Name Role Phone Unavailable Primary Care Provider Unavailabl e Social History Tobacco Use Types Packs/Day Years Used Date Smoking Tobacco: Never Assessed Sex and Gender Information Value Date Recorded Sex Assigned at Not on file Legal Sex Male 9:53 PM PST Gender Identity Not on file Sexual Orientation Not on file Plan of Treatment Not on file
--- OUTSIDE RECORDS SUMMARY | 2024-12-04 14:05 | XMS_ITS | Encounter Summary ---
Author Organization [facility] Address [address] [facility] [place] [address] Care Team Providers Care Wind Energy Project Manager Name Role Phone Kelvin Ruano DO Unavailable [phone] Kelvin Ruano DO Primary Care Provider [phone] Shravan Rousseau MD Unavailable Tigre Astorga DO Primary Care Provider [phone] Regina Magaña DO Unavailable [phone] Encounter Details Date Type Department Care Team (Late st Contact Info) Description 10/02/2023 Telephone [facility] - Rheumatology [address] [facility] [address] [place] [address] Heike Llanes MD [address] [facility] [address] [place] [address] Social History Tobacco Use Types Packs/Day Years [...] occasion? Never 06/03/2023 PHQ-2 Answer Date Recorded PHQ2 TOTAL SCORE 0 06/27/2021 Sex and Gender Information Value Date Recorded Sex Assigned at Not on file Legal Sex Male 8:06 AM CDT Gender Identity Not on file Sexual Orientation Not on file documented as of this encounter Functional Status * Is person deaf or have serious hearing difficulty? Answer Date of Assessment Author No 06/03/2023 9:05 AM Jose Fierro RN * Is person blind or have serious difficulty seeing? Answer Date of Assessment Author No 06/03/2023 9:05 AM Jose Fierro RN * Does person have serious difficulty walking/climbing stairs? Answer Date of Assessment Author No 06/03/2023 9:05 AM Jose Fierro RN * Does person have difficulty dressing/bathing? Answer Date of Assessment Author No 06/03/2023 9:05 AM Jose Fierro RN * Does person have difficulty doing errands alone? Answer Date of Assessment Author No 06/03/2023 9:05 AM Jose Fierro RN documented as of this encounter Mental Status * Does person have difficulty concentrating/remembering/making decisions? Answer Entry Date Author No 06/03/2023 9:05 AM Jose Fierro RN documented in this encounter Miscellaneous Notes * Telephone Encounter - Edu Chavez MA - 10/02/2023 9:43 AM CDT Pt called office to report he need a referral sent to [phone] DR galloway for a adrenal gland nodule removal per the ct dr llanes ordered. Pt informed message would be sent to dr llanes. Pt verbalized understanding and has no further questions at this time. documented in this encounter Plan of Treatment Not on file documented as of this encounter Goals Goal Patient Goal Type Associated Problems Recent Progress Patient-Stated? Author Medication Management General On track( 024 1:59 PM CDT) No Hue Marin RN Note: Expected end date: ongoing Interventions: Take all medications as prescribed Let your doctor know right away about any changes in your medications Make sure to request a refill of your medication at least one week prior to your last dose documented as of this encounter Visit Diagnoses Not on filedocumented in this encounter Care Teams Wind Energy Project Manager Relationship Specialty Start Date End Date Kelvin Ruano DO [address] [facility] [place] [address] PCP - General Internal Medicine 08/25/23 11/20/23 Tigre Astorga DO [address] [facility] DIV OF [address] [id number] PCP - General Internal Medicine 11/21/23 Kelvin Ruano DO [address] [facility] [place] [address] Resident - PCP Internal Medicine 06/27/21 11/20/23 Shravan Rousseau MD [address] [place] [id number] Internal Medicine 08/25/23 11/20/23 Regina Magaña DO [address] DIV OF [facility] [place] [address] Physician Internal Medicine 11/21/23 documented as of this encounter
--- OUTSIDE RECORDS SUMMARY | 2024-12-04 14:07 | XMS_ITS | Encounter Summary ---
Author Organization [facility] Health Address [address] [place] [address] Care Team Providers Care Supervisor Drilling And Shooting Name Role Phone Unavailable Primary Care Provider Unavailabl e Prior Encounters Date Type Department Care Team Description 05/03/2019 Converted 13x Documents [facility] [address] [place] [phone] <No scans attached> 05/03/2019 Converted CPS Chart Documents [facility] [address], [address] [place] [address] <No scans attached> Plan of Treatment Not on file Procedures Procedure Name Priority Date/Time Associated Diagnosis Comments 15 CROWN - FULL CAST HIGH SINGH METAL Routine 03/14/2015 12:00 AM PST 14 CROWN - FULL CAST HIGH SINGH METAL Routine 03/14/2015 12:00 AM PST 30 CROWN - FULL CAST HIGH SINGH METAL Routine 03/14/2015 12:00 AM PST 3 CROWN - FULL CAST HIGH SINGH METAL Routine 03/14/2015 12:00 AM PST 29 DO AMALGAM 2 SURFACE Routine 03/14/20 15 12:00 AM PST 31 CERECFIRED CROWNPOST Routine 03/14/20 15 12:00 AM PST 12 CERECFIRED CROWNPOST Routine 03/14/20 15 12:00 AM PST 19 CROWN PFG POST Routine 03/14/2015 12: 00 AM PST 18 CROWN PFG POST Routine 03/14/2015 12: 00 AM PST 18 CEMENT CROWN Routine 03/14/2015 12:00 AM PST 18 CERECFIRED CROWNPOST Routine 03/14/20 15 12:00 AM PST 15 CEMENT CROWN Routine 03/14/2015 12:00 AM PST 15 CERECFIRED CROWNPOST Routine 03/14/20 15 12:00 AM PST COMPREHENSIVE ORAL EVALUATION - NEW OR ESTABLISHED PATIENT Routine 03/14/2015 12:00 AM PST INTRAORAL PHOTO Routine 03/14/2015 12:00 AM PST INTRAORAL PHOTO Routine 03/14/2015 12:00 AM PST INTRAORAL PHOTO Routine 03/14/2015 12:00 AM PST INTRAORAL PHOTO Routine 03/14/2015 12:00 AM PST INTRAORAL - COMPREHENSIVE SERIES OF RADIOGRAPHIC IMAGES Routine 03/14/2015 12:00 AM PST 20 MOD COMPOSITE FILLING Routine 015 12:00 AM PST 5 MOD COMPOSITE FILLING Routine 03/14/20 15 12:00 AM PST 2 MOL COMPOSITE FILLING Routine 03/14/20 15 12:00 AM PST 21 DO COMPOSITE FILLING Routine 03/14/20 15 12:00 AM PST 18 LIMITED ORAL EVALUATION - PROBLEM FOCUSED Routine 03/08/2015 12:00 AM PST 18 RECEMENT CROWN Routine 03/08/2015 12: 00 AM PST Visit Diagnoses Not on file
[2024-12-04 14:14] VITALS: BP 134/81; PULSE 96; RESP 18; TEMP 36.4; O2SAT 100
[2024-12-04] MEDS: TETANUS,DIPHTHERIA,AC PERTUSSIS ADULT (0.5 ML) BOOSTRIX IM (14:23)
== END 2024-12-04 14:27 | disposition home or self-care (01) ==
PROVIDERS: Emergency Provider Nurse Practitioner Family
DX: S91.331A Puncture wound without foreign body, right foot, initial encounter (principal); W22.8XXA Striking against or struck by other objects, initial encounter; Z23 Encounter for immunization; N40.0 Benign prostatic hyperplasia without lower urinary tract symptoms
CPT/HCPCS: 90471; 90715; 99212; G0463

== ENCOUNTER 2025-01-18 08:20 | Emergency (ER) | payer MEDICARE, OTHER, SELFPAY ==
--- NOTE | ~2025-01-18 | XR_ITS ---
EXAMINATION: XR foot LT min 3V, 01/18/2025 8:45 CDT HISTORY: First metatarsal pain distalx 2 days COMPARISON: No comparisons available. Findings: No acute fracture or malalignment. No significant degenerative changes. Soft tissues unremarkable. Impression: No acute fracture or malalignment. Reviewed, dictated and finalized at location P. Impression: No acute fracture or malalignment.
--- NOTE | 2025-01-18 08:22 | ED_ITS ---
HPI - Extremity Injury (Lower) General Chief Complaint: Extremity Injury, Lower Stated Complaint: LT Foot Injury Time Seen by Provider: 01/18/25 08:40 Source: patient, RN notes reviewed and old records reviewed Mode of arrival: ambulatory Limitations: no limitations History of Present Illness HPI Narrative: 69-year-old male presents to the [facility] with left foot pain. States that on Friday he stepped on a wall in a while caring something and twisted his foot inwards. Pain to the not distal 1st metatarsal. No bruising or swelling noted with tenderness to the MTP joint No treatment prior to arrival Onset (ago): day(s) (2) Related Data Home Medications ?Medication ?Instructions ?Recorded ?Confirmed ?Last Taken ?Type fluorometholone 0.1 % eye drp 12/04/24 Unknown Histor y drops,suspension Allergies Allergy/AdvReac Type Severity Reaction Status Date / Time erythromycin base Allergy Mild Hives Verified 01/18/25 08:46 Sulfa (Sulfonamide Allergy Mild Hives Verified 01/18/25 08:46 Antibiotics) Review of Systems Review of Systems: All systems reviewed & are unremarkable except as noted in HPI and below Constitutional: Constitutional: Reports no additional constitutional complaints Musculoskeletal: Musculoskeletal: Reports as per HPI Integumentary/Breasts: Skin/Breast: Reports system reviewed and no additional complaints, except as docu PMFSH Past Medical History Medical History Right wrist tendinitis UTI (urinary tract infection), bacterial Hiatal hernia BPH (benign prostatic hyperplasia) Surgical History Surgical History S/P tendon repair bicep repair [address] Matson. 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 There is no relevant family history pertinent to the patient complaint. Exam Const: General: cooperative, healthy appearing, comfortable, no acute distress, well developed, alert and well nourished Nutritional Appearance: well nourished Orientation/consciousness: patient oriented x3 Limitations: no limitations HENMT: Head: normal to inspection Eyes: General: appearance normal, both eyes and all related structures Alignment and Position: alignment normal Neck: Neck: normal visual inspection, full ROM, no lymphadenopathy and no meningeal signs Chest: Chest palpation & inspection: normal inspection of the chest Resp: Effort & Inspection: normal respiratory effort and able to speak in complete sentences Cardio: Rate: regular rate Skin: General skin exam: normal color and no rashes or lesions noted Neuro: General: patient oriented x3, gait normal, moves all extremities and no meningeal signs Cognition (Neuro): normal cognition Speech: normal speech Gait exam (Neuro): Normal gait present Extrem: General: normal to inspection, full ROM, capillary refill normal and normal gait Left lower extremity: foot Details: tenderness Location: of the plantar foot Location: distally, toes with normal ROM, no edema and vascular exam Details: dorsalis pedis pulse present and normal capillary refill; no abrasions, no lacerations, no ecchymosis and no puncture wound Psych: Appearance: grossly normal and well kempt Mental Status: mental status grossly normal Speech and movement: Normal speech and movement present and Clear speech present Affect: normal affect Attitude: cooperative Course Course Level of Care: Express Care Visit Vital Signs Vital signs: Vital Signs Temperature 97.2 F L 01/18/25 08:35 Pulse Rate 84 01/18/25 08:35 Respiratory Rate 18 01/18/25 08:35 Blood Pressure 141/98 H 01/18/25 08:35 Pulse Oximetry 99 01/18/25 08:35 Oxygen Delivery Room Air 01/18/25 08:35 Temperature 97.2 F L 01/18/25 08:35 Pulse Rate 84 01/18/25 08:35 Respiratory Rate 18 01/18/25 08:35 Blood Pressure 141/98 H 01/18/25 08:35 Pulse Oximetry 99 01/18/25 08:35 Oxygen Delivery Room Air 01/18/25 08:35 Reviewed MDM - Extremity Injury (Lower) MDM Narrative Medical decision making narrative: Patient sitting in exam room. Patient is nontoxic, vitals stable. Patient presents with pain to the plantar aspect left foot. X-ray does not show any acute findings Patient is appropriate for outpatient treatment with close follow-up Discharge instructions reviewed with patient, as well as provided in writing pe r nursing staff. The instructions also include specific and strict return/GO TO THE ER as well as f/u information. All questions have been answered, and the patient deny any further questions with discharge and discharge plan. Some parts of this dictation were generated by voice recognition software and may contain typographical and/or grammatical inaccuracies. Differential Diagnosis Differential diagnosis: Likely other (Foot fracture, foot contusion, foot sprain) Imaging Data Radiologist's impression: EXAMINATION: XR foot LT min 3V, 01/18/2025 8:45 CDT HISTORY: First metatarsal pain distalx 2 days COMPARISON: No comparisons available. Findings: No acute fracture or malalignment. No significant degenerative changes. Soft tissues unremarkable. Impression: No acute fracture or malalignment. Critical Care Time Critical Care Time Critical Care Time: No Discharge Plan Discharge Clinical Impression: Superficial bruising of foot Qualifiers: Encounter type: initial encounter Laterality: left Qualified Code(s): S90.32XA - Contusion of left foot, initial encounter Patient Disposition: Home Condition: Stable Instructions: Foot Contusion (ED) Additional Instructions: Your Xray did not show a fracture. Wear good supportive shoes at all times. Ice should be applied to help reduce swelling. It can be used for 20 to 30 minutes, every 2-3 hours while awake. Do not apply ice directly to your skin. You can alternate ibuprofen 600mg and Tylenol 650mg every 4 hours as needed for pain Please schedule a follow-up visit with your personal physician for further evaluation and treatment within 2 weeks especially if symptoms persist. For new or worsening symptoms go directly to the emergency room Patient Language: Yoruba Prescriptions: No Action fluorometholone 0.1 % drops,suspension Follow-up/Referrals: UNKNOWN,DOCTOR [Non-Staff] Time of Disposition: 09:06
--- OUTSIDE RECORDS SUMMARY | 2025-01-18 08:31 | XMS_ITS | Encounter Summary ---
Author Organization [facility] Health Address [address] [place] [address] Care Team Providers Care Senior Strategy Analyst Name Role Phone Unavailable Primary Care Provider Unavailabl e Prior Encounters Date Type Department Care Team Description 05/03/2019 Converted 13x Documents [facility] [address] [place] [phone] <No scans attached> 05/03/2019 Converted CPS Chart Documents [facility] [address] [place] [address] <No scans attached> Plan of [...]
--- OUTSIDE RECORDS SUMMARY | 2025-01-18 08:31 | XMS_ITS | Clinical Summary ---
Author Organization [facility] Health Address [address] [facility] [place] [address] Care Team Providers Care Gizzard Skin Remover Name Role Phone Unavailable Primary Care Provider [...]
--- OUTSIDE RECORDS SUMMARY | 2025-01-18 08:31 | XMS_ITS | Encounter Summary ---
Author Organization [facility] Address [address] [facility] [place] [address] Care Team Providers Care Cannon Pinion Adjuster Name Role Phone Rena Manzo MD Primary Care Provider [phone] Prakash Olivares MD Primary Care Provider [phone] Kelvin Ruano DO Unavailable Rena Manzo MD Primary Care Provider [phone] Kelvin Ruano DO Primary Care Provider [phone] Shravan Rousseau MD Unavailable Tigre Astorga DO Primary Care Provider Regina Magaña DO Unavailable Encounter Details Date Type Department Care Team (Late st Contact Info) Description 03/14/2021 Telephone [facility] General Internal Medicine [address] [facility], [facility] [place] [address] Kelvin Ruano DO [address] [facility] [place] [place] [address] Social History Tobacco Use Types [...] not answer. Will call at another time. CLIENT BANKING SERVICES CLERK documented in this encounter Plan of Treatment [...] on filedocumented in this encounter Care Teams Cannon Pinion Adjuster Relationship Specialty Start Date End Date Rena Manzo MD PCP - General 01/17/21 03/19/21 Prakash Olivares MD [address] [place] [address] PCP - General 03/20/21 06/26/21 Rena Manzo MD PCP - General 06/27/21 08/24/23 Kelvin Ruano DO [address] [place] [place] [address] PCP - General Internal Medicine 08/25/23 11/20/23 Tigre Astorga DO [address] DIV OF [address] [address] PCP - General Internal Medicine 11/21/23 Kelvin Ruano DO [address] [place] [address] Resident - PCP Internal Medicine 06/27/21 11/20/23 Shravan Rousseau MD [address] [place] [address] Internal Medicine 08/25/23 11/20/23 Regina Magaña DO [address] [place] [address] Physician Internal Medicine 11/21/23 documented as of this encounter
--- OUTSIDE RECORDS SUMMARY | 2025-01-18 08:31 | XMS_ITS | Clinical Summary ---
Author Organization [email or web address] Address [address] [place] [address] Care Team Providers Care Portfolio Consultant Name Role Phone Tigre Astorga DO Primary Care Provider [phone] Regina Magaña DO Unavailable [phone] Source Comments [email or web address],non-owned Affiliates and Associated Physician Practices is amultiple site organization consisting of ambulatory clinics and hospital sitesin [place], [place], [place] and [place]. This disclosure is being madepursuant to the Care Everywhere program and may not contain all information available regarding this patient. Last updated 18.[email or web address] Allergies Active Allergy Reactions Criticality Noted Date Comments Erythromycin Urticaria Medium 12/01/2015 Sulfa Drugs Itching High 01/01/2018 Medications * Be aware that medications may not be up to date on this document. Alwaysverify current medications with the patient. [place]-3 Fatty Acids (FISH OIL) 1000 MG capsule [...] at this time - pt agreed to [employer] BP log - ctm Routine health maintenance [...] The appear temporarily related to taking the [place] tea, epilobium (as a prostate supplement) and has resolved . Given the unknown acctive ingredients in this product their could haave been a caffein-like stimulate that created his palpitations. As they have resolved with stopping the supplement no further workup is indicated. patient reassured and encouraged to avoid taking supplements for his medical problems Immunizations Immunization Administration Dates Next Due INFLUENZA [...] 2016 MEDICARE AWV 12 MONTHS 06/18/2022 06/18/2021 DEPRESSION SCREENING 04/14/2024 01/26/2024, 12/12/19 COVID-19 VACCINE ( - season) 2024 INFLUENZA VACCINE (#1) 2024 04/04/2015 DTAP/TDAP/TD VACCINES [...] On track( 024 1:59 PM CDT) Hue Briones, RN Note: Expected end date: ongoing Interventions: Take all medications as prescribed Let your doctor know right away about any changes in your medications Make sure to request a refill of your medication at least one week prior to your last dose Medical Devices Implanted Type Area Agency Development Manager Device Identifier Shelf Expiration Date Model / Serial / Lot Mesh Srg Bard 3dmax 6x4in Lg 3d Crv Implanted:Qty: 1 on 04/02/2022 by Heike Lam MD at [facility] N/A: [employer] 04/10/2026 [id number] / / [id number] Procedures Procedure Name Priority Date/Time Associated Diagnosis Comments BASIC METABOLIC PANEL (CALCIUM TOTAL) Routine 10/21/2023 8:34 AM CDT Adenoma of left adrenal gland LIPID PROFILE Routine 08/25/2023 3:17 PM CDT Routine health maintenance HEPATITIS C AB SCREEN RFLX NAAT QUANT Routine 08/25/2023 3:17 PM CDT Routine health maintenance ENDOSCOPY, COLON, SCREENING Routine 10/19/2020 1:59 PM CDT from Last 3 Months or Most Recently Relevant to Health Maintenance Results * (ABNORMAL) BASIC METABOLIC PANEL (CALCIUM TOTAL) (10/21/2023 8:34 AM CDT) BUN 16 7 - 26 mg/dL 10/21/2023 9:19 AM [facility] Creatinine 1.01 0.71 - 1.16 mg/dL 10/21/2023 9:19 AM [facility] Sodium 140 136 - 145 mmol/L 10/21/2023 9:19 AM [facility] Potassium 4.1 3.5 - 4.5 mmol/L 10/21/2023 9:19 AM [facility] Chloride 108(H) 98 - 107 mmol/L 10/21/2023 9:19 AM [facility] CO2 24 22 - 29 mmol/L 10/21/2023 9:19 AM [facility] Glucose 105 70 - 115 mg/dL 10/21/2023 9:19 AM [facility] Calcium 9.5 8.4 - 10.2 mg/dL 10/21/2023 9:19 AM [facility] Anion Gap 8 6 - 16 10/21/2023 9:19 AM [facility] BUN/Creatinine Ratio 16 7 - 23 10/21/2023 9:19 AM [facility] Osmolality Calculated 292 275 - 295 mOsm/kg 10/21/2023 9:19 AM [facility] eGFR by CKD-EPI 82(L) >=90 mL/min/1.7 3 m2 10/21/2023 9:19 AM [facility] Blood BLOOD SPECIMEN / Unknown Lab Venipuncture / Unknown 10/21/2023 8:34 AM CDT 10/21/2023 8:48 AM T Justin Velez MD LAB - CHEMISTRY ORDERABLES Fin al Result [facility] [address] [place] [address], [facility] [phone] * HEPATITIS C AB SCREEN RFLX NAAT QUANT (08/25/2023 3:17 PM CDT) Hepatitis C Antibody Non-react samy Non-reac tive 08/25/2023 4:17 PM [facility] Comment:Hepatitis C Antibody screen indicates no serologic [...] CHEMISTRY ORDERABLES Final Result Performing Organization Address City/[facility] [address]/ZIP Co de Phone Number [address] [address], [facility] [phone] * (ABNORMAL) LIPID PROFILE (08/25/2023 3:17 PM CDT) Cholesterol Total 222(H) <200 mg/dL 08/25/2023 3:58 PM CDT [facility] HDL 44 >40 mg/dL 08/25/2023 3:58 PM CDT [facility] Comment: ATP III Classification of HDL Cholesterol: <40 mg/dL: Considered a major risk factor. >60 mg/dL: Considered a negative risk factor. LDL Calculated 158(H) <100 mg/dL 08/25/2023 3:58 PM CDT [facility] Comment: ATP III Classification of LDL Cholesterol: <100 mg/dL: Optimal 100 - 129 mg/dL: Near Optimal/Above Optimal 130 - 159 mg/dL: Borderline High 160 - 189 mg/dL: High >190 mg/dL: Very High Triglycerides 101 <150 mg/dL 08/25/2023 3:58 PM T [facility] Comment: ATP III Classification of Triglycerides: <150 mg/dL: Normal 150 - 199 mg/dL: Borderline High 200 - 400 mg/dL: High >500 mg/dL: Very High Blood BLOOD SPECIMEN / Unknown Lab Venipuncture / Unknown 08/25/2023 3:17 PM CDT 08/25/2023 3:28 PM CDT Flo Brown MD LAB - CHEMISTRY ORDERABLES Final Result Performing Organization Address City/[facility] [address]/ZIP Co de Phone Number [address] [address] [phone] * ENDOSCOPY, COLON, SCREENING (10/19/2020 1:59 PM CDT) Report Endoscopy POC Endoscopy Department Report _ Patient Name: David Myers Procedure Date: 10/19/2020 1:59 PM Date of [...] and oxygen saturations were monitored continuously. The [id number] was introduced through the anus and advanced to the terminal ileum, with identification of the appendiceal orifice and IC valve. The colonoscopy was performed without difficulty. The patient tolerated the procedure well. The quality of the bowel preparation was evaluated using the BBPS ([place] Bowel Preparation Scale) with scores of: Right [...] non-taylor portions. Procedure Code(s): --- Professional --- 40918, Colonoscopy, flexible; with removal of tumor(s), polyp(s), or other lesion(s) by snare technique 29083, 59, Colonoscopy, flexible; with biopsy, single or multiple Diagnosis Code(s): --- Professional --- Z12.11, Encounter for screening for malignant neoplasm of colon K63.5, Polyp of colon CPT copyright 2019 [employer]. All rights reserved. The codes documented in this report are preliminary and upon family and divorce legal assistant review may be revised to meet current compliance requirements. ____ Martina Carmen MD 10/19/2020 2:52:32 PM Note Initiated On: 10/19/2020 1:59 PM Number of Addenda: [address] [address] [facility] PROVATION 10/19/2020 1:59 PM CDT Martina Carmen MD GI PROCEDURE ORDERABLES Ed ited Result - Final [facility] PR[facility]ATION from Last 3 Months or Most Recently Relevant to Health Maintenance Insurance MEDICARE [facility] [place] [address] MEDICARE Member Subscriber Plan / Payer (Ef fective 2021-Present) Name:David Myers Member ID:[id number] Relation to Subscriber:Self Name:DAVID MYERS Subscriber ID:[id number] Payer ID:Not on file Group ID:Not on file Type:Medicare Address: [facility] [id number] [place] [phone] [facility] [place] [address] Care Teams Portfolio Consultant Relationship Specialty Start Date End Date Tigre Astorga DO [address] [place] [address] PCP - General Internal Medicine 11/21/23 Regina Magaña DO [address] [place] [address] Physician Internal Medicine 11/21/23
--- OUTSIDE RECORDS SUMMARY | 2025-01-18 08:31 | XMS_ITS | Encounter Summary ---
Author Organization [facility] Address [address] [place] [address] Care Team Providers Care Deputy Brand Inspector Name Role Phone Kelvin Ruano DO Unavailable [phone] Kelvin Ruano DO Primary Care Provider [phone] Shravan Rousseau MD Unavailable Tigre Astorga DO Primary Care Provider [phone] Regina Magaña DO Unavailable [phone] Encounter Details Date Type Department Care Team (Late st Contact Info) Description 10/02/2023 Telephone [facility] - Rheumatology [address], [address] [place] [address] Heike Llanes MD [address] [address] Social History Tobacco Use Types Packs/Day Years [...] report he need a referral sent to [phone] DR galloway for a adrenal gland nodule [...] track( 024 1:59 PM CDT) No Hue Marin, RN Note: Expected end date: ongoing Interventions: Take all medications as prescribed Let your doctor know right away about any changes in your medications Make sure to request a refill of your medication at least one week prior to your last dose documented as of this encounter Visit Diagnoses Not on filedocumented in this encounter Care Teams Deputy Brand Inspector Relationship Specialty Start Date End Date Kelvin Ruano DO [address] [facility] [place] [place] [address] PCP - General Internal Medicine 08/25/23 11/20/23 Tigre Astorga DO [address] [facility] [address] [place] [phone] PCP - General Internal Medicine 11/21/23 Kelvin Ruano DO [address] [facility] [place] [place] [address] Resident - PCP Internal Medicine 06/27/21 11/20/23 Shravan Rousseau MD [address] [place] [phone] Internal Medicine 08/25/23 11/20/23 Regina Magaña DO [address] DIV OF [facility] [place] [address] Physician Internal Medicine 11/21/23 documented as of this encounter
--- OUTSIDE RECORDS SUMMARY | 2025-01-18 08:31 | XMS_ITS | Patient Health Record ---
Author Organization [facility] Address [address] [place] [address] Care Team Providers Care Tank Cooper Name Role Phone Tom Jacome Unavailable [phone] Reason For Referral No Information Problems Problem Type SNOMED Code ICD Code Onset Dates Problem Status W/U Status Risk Notes Problem Microscopic hematuria (287654325) Microscopic hematuria (599.72) 6 Active confirmed Problem Benign prostatic hypertrophy with outflow obstruction (876746860) Hypertrophy (benign) of prostate with urinary obstruction and other lower urinary tract symptoms [LUTS] (600.01) 6 Active confirmed Problem Chronic prostatitis (11867899) Chronic prostatitis (601.1) 6 Active confirmed Problem Retention of urine (disorder) (049328511) Unspecified retention of urine (788.20) 6 Active confirmed Plan Of Treatment No Information Insurance Providers Payer Name Payer Address Payer Phone Subscriber Number Group Number Insured Name Patient Relationship to Insured Coverage Start Date Coverage End Date [employer] [address] [address] [place], [place] [id number] [phone] NULL David Braun Self - patient is the insured
[2025-01-18 08:35] VITALS: BP 141/98; PULSE 84; RESP 18; TEMP 36.2; O2SAT 99
== END 2025-01-18 09:09 | disposition home or self-care (01) ==
PROVIDERS: Emergency Provider Nurse Practitioner
DX: S90.32XA Contusion of left foot, initial encounter (principal); X58.XXXA Exposure to other specified factors, initial encounter
CPT/HCPCS: 73630; 99213; G0463